=== PATIENT | female | born 1955 | race Caucasian/White ===

== ENCOUNTER → 2021-09-16 | Outpatient (CLI) | payer BC | LOC: MAMO 14:28 | DX: Z12.31 Encounter for screening mammogram for malignant neoplasm of breast (principal) | CPT/HCPCS: 77063; 77067 ==

== ENCOUNTER → 2021-10-10 | Outpatient (CLI) | payer BC | LOC: US 11:00 | DX: N63.20 Unspecified lump in the left breast, unspecified quadrant (principal); N60.02 Solitary cyst of left breast | CPT/HCPCS: 76642-LT ==